=== PATIENT | female | born 1990 | race Caucasian/White ===

== ENCOUNTER 2018-11-02 07:15 | Inpatient (IN) | payer SELFPAY ==
[2017-11-10 18:27] VITALS: BMI 22.0
[2018-11-02] VITALS (24 sets, daily range): BP systolic 67–125; BP diastolic 23–66; PULSE 77–146; RESP 17–19; TEMP 36.1–37.2; O2SAT 98–100; BMI 26.1
[2018-11-02 07:13] LABS: ROM Internal Control Test YES-OK TO RESULT pt. (Internal QC)
[2018-11-02 07:14] LABS: ROM Patient Test POSITIVE (Negative)
[2018-11-02] MEDS: 0.9% Saline Lock 10 ML Syringe IV ×6 (08:05→23:45)
--- NOTE | 2018-11-02 08:14 | PCM.HP.OB ---
- Problem List (1) PROM (premature rupture of membranes) Status: Acute (2) History of spontaneous Status: Acute History Date of Admission: 11/02/18 Final BRETT: 11/04/18 Gestational age: 39 Weeks and 5 Days History of this : This is a 28 year-old, G [2], P [0010], at 39 weeks gestational age. Presented to L&D for SROM with clear fluid around 0200 this am. Upon arrival not visibly grossly ruptured. ROM plus sent, positive and admit to L&D. Allergies No Known Allergies Allergy (Verified 11/10/17 18:29) Home Medications: Home Medications Vits [Prenatabs FA ] 1 tab PO DAILY 11/02/18 Smoking Status: Never smoker Alcohol: None Number of Fetus(es): 1 Heart Tracin, moderate variabilty, accels, no decels, Category 1 Contractions every 5 minutes, mild to palpation. Cervix 3.5cm/75%-1. per nursing staff. Cephalic by Esteban's History Past Pregnancies: Past Pregnancies Delivery Date Name GA/Weeks Outcome Route Weight Gender Labor Length Anesthesia Delivery Location Provider FOB Labs: GBS negative HIV negative GC/CT negative RPR negative HBsAG negative A positive, antibody screen negative Rubella immune Review of Systems Constitutional: Denies: Chills, Fever, Weight Change HEENT: Denies: Head Aches, Sinus Congestion, Sinus Drainage Cardiovascular: Denies: Chest Pain, Palpitations Respiratory: Denies: Cough, Shortness of breath at rest, Sputum production Gastrointestinal: Reports: Abdominal Pain. Denies: Nausea, Vomiting Genitourinary: Denies: Dysuria Psychiatric: Denies: Anxiety, Depression, Homicidal Ideations, Suicidal Ideations Physical Exam General: Alert, Oriented x3, No apparent distress HEENT: Atraumatic, Normocephalic Cardiovascular: Regular rate, Regular Rhythm, No murmurs Lungs: Clear to auscultation, Normal air movement, No rhonchi, No wheeze Abdomen: Bowel Sounds Present, Gravid Extremities:: No edema Neurological: Deep Tendon Reflexes 2+/4 and Symmetrical. 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 A: Premature Rupture of Membranes Category 1 FHT P: 1) Admit to L&D 2) IV saline lock. Routine labs 3) Intermittent monitoring 4) Planning unmedicated . Reviewed pain management options, tub for labor, nitrous and IV pain medication. 5) notified of labor and admission. Collaborative physician.
[2018-11-02 08:36] LABS: Hematocrit 38.8 % (37-47); Hemoglobin 13.2 g/dl (12.0-15.0); Mean Corpuscular Hgb 31.4 pg (27.0-32.0); Mean Corpuscular Volume 92.4 fL (81-99); Mean Platelet Vol. 10.2 fl (6.2-12.0); Platelet Count 195 K/mm3 (150-450); RBC Distribution Width CV 12.7 % (11.6-14.6); RBC Distribution Width SD 42.7 fl (35.1-43.9); White Blood Count 11.4 K/mm3 (4.4-11.0)
[2018-11-02 08:41] LABS: Scan Indicated on CBC? Y/N NO
--- NOTE | 2018-11-02 13:03 | PCM.PN.OB ---
Patient Problems: Active and Suspected Problems PROM (premature rupture of membranes) (Acute) History of spontaneous (Acute) Subjective: Doing well per patient and nursing staff. Breathing well through contractions. at bedside. Laying on bed on left side with peanut ball. Objective: Coping well with contractions. FHR 120 via doppler, no increases or decreases, Category 1 TOCO: Contractions every 2-4 minutes, strong to palpation Cervix 5cm/90%/0 - Physical Exam Weight: 152 lb 1.903 oz Body Mass Index (BMI) 26.1 Laboratory Tests Past 24 Hrs 11/02/18 11/02/18 11/02/18 05:43 08:00 08:00 WBC 11.4 H RBC 4.20 Hgb 13.2 Hct 38.8 MCV 92.4 MCH 31.4 MCHC 34.0 RDW 12.7 RDW Differential 42.7 Plt Count 195 MPV 10.2 Vag Amniotic Fld Detect POSITIVE H Blood Type A POSITIVE Antibody Screen NEGATIVE Medical Necessity - Tobacco Use Smoking Status: Never smoker Assessment/Plan All Active Problems PROM (premature rupture of membranes) (Acute) History of spontaneous (Acute) A:Active Labor, progressing Category 1 FHT P: 1) Tub for pain management. Coping well. 2) Reviewed pain relief options. Ok to continue unmedicated at this time. 3) Side lying release, tolerated well. 4) Continue with expectant management. 5) notified of progress.
[2018-11-02] MEDS: Nalbuphine 10 MG/ML Ampul IV (14:44)
[2018-11-02] MEDS: Oxytocin 30 units/NS 500 ml 30 UNITS/500 ML IV.SOLN 334 UNITS IV (16:20)
[2018-11-02] MEDS: Lactated Ringers 1,000 ML 999 ML IV ×2 (16:20→19:50)
[2018-11-02] MEDS: Oxytocin 30 units/NS 500 ml 30 UNITS/500 ML IV.SOLN 167 UNITS IV (16:50)
[2018-11-02] MEDS: HYDROmorphone 1 MG/ML Syringe IV (17:13)
[2018-11-02] MEDS: Sodium Citrate/Citric Acid 30 ML UDC PO (17:28)
--- NOTE | 2018-11-02 17:38 | PCM.OB.VAG ---
- Problem List (1) PROM (premature rupture of membranes) Status: Acute (2) History of spontaneous Status: Acute (3) Vaginal delivery Status: Acute (4) First degree perineal laceration during delivery Status: Acute (5) Retained placenta Status: Acute Vaginal Delivery Maternal Presentation: Spontaneous Rupture of Membranes Amniotic Membrane Rupture Type: Spontaneous at home Rupture of Membrane time: 0200 Amniotic Fluid Description: Clear Final BRETT: 11/04/18 Gestational age: 39 Weeks and 5 Days Date of Procedure: 11/02/18 Pre-Operative Diagnosis: PROM Post-Operative Diagnosis: Surgery/ Procedure Performed: Spontaneous Vaginal Delivery Type of Anesthesia: None Description of Procedure: Progressed to complete with urge to push. heart tones down in 70's with late decelerations and recovered to baseline low 100's-115. Positional changes and O2 via face mask. of viable female over 1st degree perineal laceration. Cord around body loose.Spontaneous cry, mouth and nares suctioned for secretions. APGARS 9, 10. Weight pending. Baby placed skin to skin on maternal abdomen. Delayed cord clamping. Cord clamped and cut after pulsations ceased by FOB. Cord blood gases obtained. Pitocin started for active 3rd stage management via IV. Gentle traction/counter pressure for placenta delivery, not forthcoming. 10units with NS instilled into umbilical vein for retained placenta. Attempted manual removal but only feeling placental edge. Decision to call after 30 minutes of retained placenta and unable to remove manually. Patient stable and no signs of hemorrhage. Bladder emptied with straight hill catheter for 150ml of clear yellow urine. arrived for manual removal of placenta and unsuccessful. Will proceed to OR for removal under anesthesia. Please see note. Mom and baby stable. Baby skin to skin with FOB. Planning to breastfeed. Presentation: Vertex Placental Delivery Description: Retained - Manual removal attempted by and unsucessful. Cord Vessel Description: 3 Vessels Cord Gases drawn per routine: ABG, VBG Cord Entanglement: Around neck x 1, loose Estimated Blood Loss: 300 ml A gender: Female (1 minute): 9 (5 minute): 10 Episiotomy Description: None Laceration: Perineal Extension/lac, 1st degree - Unrepaired at time of delivery. Will complete repair in OR. Medications given after delivery: IV Pitocin Complications: None - Retained Placenta. To OR for removal by . See operative report.
[2018-11-02] MEDS: Cefazolin 2 GM in 0.9% Normal Saline 100 ML IV ×2 (17:40→23:50)
[2018-11-02] MEDS: miSOPROStol 200 MCG Tablet 1000 MCG RECTAL (19:28)
--- NOTE | 2018-11-02 19:51 | NURSING ---
Addendum entered by Monique Villatoro 11/02/18 20:04: per Lizette Lagunas MAC anesthesia used for D&C procedure Original Note: Anesthesia per Lizette Lagunas
--- NOTE | 2018-11-02 20:01 | OP.PCM_ITS ---
Problem List (1) Retained placenta Status: Acute Report of Operation Date of Procedure: 11/02/18 Pre-Operative Diagnosis: Retained placenta Post-Operative Diagnosis: As above Surgery/Procedure Performed:: Suction D&C under ultrasound guidance Description of Surgical Findings:: Uterus with retained fundal placenta noted on ultrasound. Cervix 4 cm dilated. 1st degree vaginal laceration Type of Anesthesia:: MAC Specimen's removed: Placental tissue Estimated Blood Loss (mL): 500 Fluids Replaced: 1700 Description of Procedure: MAC anesthesia was found to be adequate. The patient was prepped and draped in the dorsal lithotomy position using yellowfin stirrups in the usual sterile fashion. Ultrasound was performed noting retained fundal placenta. A first- degree vaginal laceration was noted. The cervix was 4 cm dilated. A speculum was placed to expose the cervix. A ring forcep was placed on the anterior lip of the cervix. A 16 mm suction curettage was advanced to the fundus under ultrasound guidance, and several passes were made noting a large amount of placenta to be removed. A banjo curettage was then used under ultrasound guidance noting additional amounts of placenta removed. A 14 mm suction curettage was then used again under ultrasound guidance until no further placenta was noted to be removed. A sharp curettage was performed noting no additional placenta and good cry of all 4 uterine pineda under ultrasound guidance. During the procedure the patient became hypotensive at the end of the procedure. Fundus was firm and bleeding was hemostatic. 3-0 Vicryl was used to repair the 1st degree vaginal laceration in usual fashion. 1000 mcg of Cytotec was placed rectally. A stat CBC and coags were ordered, and the patient was typed and crossed for 2 units of packed red blood cells. - Admit VTE Documentation VTE Present on Admission: No VTE Mechan Device Prophylaxis: None
--- NOTE | 2018-11-02 20:01 | PCM.PN.BLA ---
Progress Note At bedside to check on patient after procedure. Patient notably pale, and hypotensive. HR normal. Second IV being placed. Fundus remains firm and bleeding very scant at this time. Stat CBC and coags being sent. Discussed risks and benefits of a blood transfusion and patient agreeable to blood transfusion and provided consent. Bolus of 1L NS started. T&C for 2 units PRBC's sent, to start 1 unit of PRBC's immediately and possibly given additional units based on patients vitals and CBC.
[2018-11-02 20:21] LABS: Hematocrit 30.8 % (37-47); Hemoglobin 10.5 g/dl (12.0-15.0); Mean Corp Hgb Conc 34.1 g/gl (32-36); Mean Corpuscular Hgb 31.3 pg (27.0-32.0); Mean Corpuscular Volume 91.9 fL (81-99); Mean Platelet Vol. 9.7 fl (6.2-12.0); Platelet Count 182 K/mm3 (150-450); RBC Distribution Width CV 12.7 % (11.6-14.6); RBC Distribution Width SD 42.8 fl (35.1-43.9); Red Blood Count 3.35 M/mm3 (4.2-5.4); White Blood Count 25.2 K/mm3 (4.4-11.0)
[2018-11-02 20:26] LABS: International Normalized Ratio 1.1; Partial Thromboplast Time 26.4 Seconds (24.1-36.2)
--- NOTE | 2018-11-02 20:38 | PCM.PN.BLA ---
Progress Note At bedside to check on patient. Additional piece of placenta passed that appeared very fatty, and send to pathology for review. Fundus firm at U-1 and bleeding very scant. BP improving but pt still hypotensive. Still awaiting results of blood work. RN called regarding PRBC's, and still being prepared so transfusion not able to be started yet. TAUS performed at bedside noting a normal appearing uterus with thin endometrium, no additional placenta noted.
[2018-11-02 20:40] LABS: Scan Indicated on CBC? Y/N NO
--- NOTE | 2018-11-02 21:06 | NURSING ---
2 large softball size clots expressed with fundal check, small blood amount expressed with fundal check. fundus firm at umbilicus. Dr. Shrestha called to room for evaluation of bleeding.
--- NOTE | 2018-11-02 22:44 | NURSING ---
1 large softball sized clot passed upon fundal check. upon fundal massage large grapefruit membrane expressed. fundus firm at umbilicus and minimal bleeding. Dr. Shrestha called to pt room for inspection and evaluation of clot and membranes expressed with fundal check. @ 2017 Dr. Shrestha in pt room and states remaining placenta was expressed and wants US at bedside. @ 2019 US at bedside for further evaluation.
--- NOTE | 2018-11-02 23:09 | NURSING ---
Dr. Shrestha in to check on pt @ 1502.
[2018-11-02] MEDS: Lactated Ringers 1,000 ML 75 ML IV (23:45)
[2018-11-03] VITALS (7 sets, daily range): BP systolic 90–114; BP diastolic 49–58; PULSE 61–95; RESP 16–20; TEMP 36.5–37.2; O2SAT 98–100
--- NOTE | 2018-11-03 01:41 | NURSING ---
@ 0045 initially pt able to stand at bedside without feeling dizzy and light headed. pt became light headed and dizzy after standing for about 30 seconds, pt became pale and sat down at bedside. a cold wash cloth placed on back of neck. bedside commode brought to pt room so that pt can attempt to empty her bladder. pt able to sit on bedside commode @ 0055 without any symptoms but after a few minutes pt became faint. pt placed back into bed and blood pressure was taken. pt alert during situation.
[2018-11-03] MEDS: Cefazolin 2 GM in 0.9% Normal Saline 100 ML IV (05:35)
[2018-11-03 06:03] LABS: Hemoglobin 9.4 g/dl (12.0-15.0); Mean Corp Hgb Conc 34.8 g/gl (32-36); Mean Corpuscular Hgb 31.4 pg (27.0-32.0); Mean Corpuscular Volume 90.3 fL (81-99); Mean Platelet Vol. 9.6 fl (6.2-12.0); Platelet Count 156 K/mm3 (150-450); RBC Distribution Width CV 13.1 % (11.6-14.6); RBC Distribution Width SD 42.4 fl (35.1-43.9); Red Blood Count 2.99 M/mm3 (4.2-5.4)
[2018-11-03 06:05] LABS: Scan Indicated on CBC? Y/N NO
[2018-11-03 06:12] LABS: International Normalized Ratio 1.1; Prothrombin Time (Protime)PT. 14.3 SECONDS (11.7-14.9)
[2018-11-03 06:13] LABS: Partial Thromboplast Time 26.4 Seconds (24.1-36.2)
[2018-11-03 06:21] LABS: Fibrinogen 365 mg/dl (203-444)
[2018-11-03] MEDS: 0.9% Saline Lock 10 ML Syringe IV ×2 (06:30→21:33)
--- NOTE | 2018-11-03 08:14 | PN.OBGYN_ITS ---
Patient Problems: Active and Suspected Problems PROM (premature rupture of membranes) (Acute) History of spontaneous (Acute) Vaginal delivery (Acute) First degree perineal laceration during delivery (Acute) Retained placenta (Acute) Subjective: Is doing well. She feels better today. She had some lightheadedness and diz ziness overnight, which is improving. She was able to get up to the wheelchair and visit baby in special care nursery today. Tolerating a diet without nausea or vomiting. Spontaneously voiding. Pain is well controlled. Lochia is minimal. Denies chest pain, shortness of breath, leg pain. She plans to breast-feed. - Physical Exam General: Alert, No apparent distress HEENT: Atraumatic Lungs: - - No increased resp effort Abdomen: Soft, Non-Distended, - - ATTP, FF@U-1 Extremities: No edema, No Calf Tenderness Skin: No rashes Neurological: Neuro grossly intact Psych/Mental Status: Normal Affect, Appropriate Vital Signs Temp Pulse Resp BP Pulse Ox 97.8 F 72 16 109/58 L 100 11/03/18 04:35 11/03/18 04:35 11/03/18 04:35 11/03/18 04:35 11/03/18 00:55 Oxygen Delivery Method Room Air Weight: 152 lb 1.903 oz Body Mass Index (BMI) 26.1 Intake and Output for Last 24 Hours 11/01/18 11/02/18 11/03/18 23:59 23:59 23:59 Intake Total 3350 / 3350 Output Total 150 / 150 1100 / 1100 Balance 3200 / 3200 -1100 / -1100 Laboratory Tests Past 24 Hrs 11/02/18 11/02/18 11/02/18 08:00 08:00 08:00 WBC 11.4 H RBC 4.20 Hgb 13.2 Hct 38.8 MCV 92.4 MCH 31.4 MCHC 34.0 RDW 12.7 RDW Differential 42.7 Plt Count 195 MPV 10.2 Immature Gran % (Auto) Neut % (Auto) Lymph % (Auto) [place] % (Auto) Eos % (Auto) Baso % (Auto) Immature Gran # (Auto) Absolute Neuts (auto) Absolute Lymphs (auto) Absolute Monos (auto) Total Counted Neutrophils % (Manual) Band Neutrophils % Lymphocytes % (Manual) Monocytes % (Manual) Eosinophils % (Manual) Basophils % (Manual) Metamyelocytes % Myelocytes % Promyelocytes % Blast Cells % Plasma Cell % (Manual) Other Cells % Lymphocytes # Nucleated RBCs/100 WBC Differential Comment Hypersegmented Neuts Atypical Lymphocytes Reactive Lymphocytes Smudge Cells Eosinophilia # Basophilia # Toxic Granulation Dohle Bodies Dorcas Rods Platelet Estimate Plt Morphology Comment RBC Morphology Polychromasia Hypochromasia Poikilocytosis Basophilic Stippling Anisocytosis Microcytosis Macrocytosis Spherocytes Sickle Cells Target Cells Tear Drop Cells Ovalocytes Stomatocytes [place] Bodies [place] Cells Bite Cells Acanthocytes (Spur) Rouleaux Schistocytes PT INR APTT Fibrinogen Blood Type A POSITIVE Antibody Screen NEGATIVE Crossmatch See Detail 11/02/18 11/02/18 11/03/18 19:55 19:55 05:45 WBC 25.2 H 19.0 H RBC 3.35 L 2.99 L Hgb 10.5 L 9.4 L Hct 30.8 L 27.0 L MCV 91.9 90.3 MCH 31.3 31.4 MCHC 34.1 34.8 RDW 12.7 13.1 RDW Differential 42.8 42.4 Plt Count 182 156 MPV 9.7 9.6 Immature Gran % (Auto) Cancelled Neut % (Auto) Cancelled Lymph % (Auto) Cancelled [place] % (Auto) Cancelled Eos % (Auto) Cancelled Baso % (Auto) Cancelled Immature Gran # (Auto) Cancelled Absolute Neuts (auto) Cancelled Absolute Lymphs (auto) Cancelled Absolute Monos (auto) Cancelled Total Counted Cancelled Neutrophils % (Manual) Cancelled Band Neutrophils % Cancelled Lymphocytes % (Manual) Cancelled Monocytes % (Manual) Cancelled Eosinophils % (Manual) Cancelled Basophils % (Manual) Cancelled Metamyelocytes % Cancelled Myelocytes % Cancelled Promyelocytes % Cancelled Blast Cells % Cancelled Plasma Cell % (Manual) Cancelled Other Cells % Cancelled Lymphocytes # Cancelled Nucleated RBCs/100 WBC Cancelled Differential Comment Cancelled Hypersegmented Neuts Cancelled Atypical Lymphocytes Cancelled Reactive Lymphocytes Cancelled Smudge Cells Cancelled Eosinophilia # Cancelled Basophilia # Cancelled Toxic Granulation Cancelled Dohle Bodies Cancelled Dorcas Rods Cancelled Platelet Estimate Cancelled Plt Morphology Comment Cancelled RBC Morphology Cancelled Polychromasia Cancelled Hypochromasia Cancelled Poikilocytosis Cancelled Basophilic Stippling Cancelled Anisocytosis Cancelled Microcytosis Cancelled Macrocytosis Cancelled Spherocytes Cancelled Sickle Cells Cancelled Target Cells Cancelled Tear Drop Cells Cancelled Ovalocytes Cancelled Stomatocytes Cancelled [place] Bodies Cancelled [place] Cells Cancelled Bite Cells Cancelled Acanthocytes (Spur) Cancelled Rouleaux Cancelled Schistocytes Cancelled PT 14.0 INR 1.1 APTT 26.4 Fibrinogen Blood Type Antibody Screen Crossmatch 11/03/18 05:45 WBC RBC Hgb Hct MCV MCH MCHC RDW RDW Differential Plt Count MPV Immature Gran % (Auto) Neut % (Auto) Lymph % (Auto) [place] % (Auto) Eos % (Auto) Baso % (Auto) Immature Gran # (Auto) Absolute Neuts (auto) Absolute Lymphs (auto) Absolute Monos (auto) Total Counted Neutrophils % (Manual) Band Neutrophils % Lymphocytes % (Manual) Monocytes % (Manual) Eosinophils % (Manual) Basophils % (Manual) Metamyelocytes % Myelocytes % Promyelocytes % Blast Cells % Plasma Cell % (Manual) Other Cells % Lymphocytes # Nucleated RBCs/100 WBC Differential Comment Hypersegmented Neuts Atypical Lymphocytes Reactive Lymphocytes Smudge Cells Eosinophilia # Basophilia # Toxic Granulation Dohle Bodies Dorcas Rods Platelet Estimate Plt Morphology Comment RBC Morphology Polychromasia Hypochromasia Poikilocytosis Basophilic Stippling Anisocytosis Microcytosis Macrocytosis Spherocytes Sickle Cells Target Cells Tear Drop Cells Ovalocytes Stomatocytes [place] Bodies [place] Cells Bite Cells Acanthocytes (Spur) Rouleaux Schistocytes PT 14.3 INR 1.1 APTT 26.4 Fibrinogen 365 Blood Type Antibody Screen Crossmatch Medical Necessity - Tobacco Use Smoking Status: Never smoker Assessment/Plan All Active Problems PROM (premature rupture of membranes) (Acute) History of spontaneous (Acute) Vaginal delivery (Acute) First degree perineal laceration during delivery (Acute) Retained placenta (Acute) PP day #1 s/p POD#1 s/p suction D&C for retained placenta followed by hypotension, tachycardia - give 1 unit PRBC's - VSS, HD stable - Minimal bleeding and fundus remains firm - Hgb 9 this morning, will repeat tomorrow - Pt feeling improved - Will start daily iron at home, rx sent - Plans to breastfeed - Baby in special care nursery - Dispo: Routine care. Likely d/c tomorrow
--- NOTE | 2018-11-03 08:19 | DCINST_ITS ---
Discharge Diet: No Restrictions Discharge Activity: Return to Normal Activity, May Shower May resume sexual activity in: 6 weeks Weight Bearing Status: Weight bearing as tolerated Lifting Restrictions: None Call your doctor if you observe: Fever of 101 or Higher, Inability to urinate, Inability to have a bowel movement, Using more than one pad per hour, Shortness of breath, Chest pain, Increased palpitations (irregular heartbeat), Calf discomfort, Uncontrolled pain Instructions: After a Vaginal , Discharge Instructions for Dilation and Curettage (D and C) Additional Instructions: If you experience any of the following, contact your healthcare provider. * Bleeding that soaks a pad every hour for 2 hours * Fever 100.4 or higher * Unrelieved incision or abdominal pain * Swelling, redness, discharge or bleeding from your incision or episiotomy site * Your incision begins to separate * Problems urinating (including inability to urinate or burning while urinating). * Visual changes * Severe headache * Flu-like symptoms * Pain or redness in one of both of your breasts * Pain, warmth, tenderness or swelling in your legs, especially the calf area * Frequent nausea and vomiting * Symptoms of depression or anxiety If you experience any of the following, call 911 or go to the nearest Emergency Room. * Chest pain * Problems breathing * Seizure activity * Partial or complete paralysis of a body part, slurred speech, weakness or drooping of the face, or a sudden inability to walk or hold your balance Allergies/Adverse Reactions: Allergies No Known Allergies Allergy (Verified 11/10/17 18:29) Medications to take at Discharge Vits [Prenatabs FA ] 1 tab PO DAILY 11/02/18 Ferrous Sulfate 325 mg PO DAILY #60 tablet 11/03/18 The following prescriptions were given: Ferrous Sulfate 325 mg PO DAILY #60 tablet When: In 1-2 weeks, and then in 4-6 weeks as well. Primary Care Physician: Maxi Ramos DO [Primary Care Provider] - Test Results: Test results from this visit will be discussed in further detail at your follow- up appointment, if applicable.
[2018-11-03] MEDS: Senna/Docusate Sodium 1 Tablet PO (08:44)
[2018-11-03] MEDS: Ibuprofen 600 MG Tablet PO ×2 (08:44→17:06)
[2018-11-03] MEDS: Dibucaine 30 GM Tube 1 APPLIC TOPICAL (08:51)
--- NOTE | 2018-11-03 09:29 | NURSING ---
slight bruise small area raised along perineum soft to touch
[2018-11-04 01:51] VITALS: BP 86/55; PULSE 70; RESP 14; TEMP 36.6; O2SAT 98
--- NOTE | 2018-11-04 01:51 | NURSING ---
Pt. sleeping in bed when RN entered room to assess vital signs. Blood pressure found to be 86/55. Pt. denies any headache and states she is just sleepy. Fundus firm and midline at u-2, all other vital signs stable. Bleeding scant and appropriate.
[2018-11-04 05:48] LABS: Hematocrit 24.5 % (37-47); Hemoglobin 8.2 g/dl (12.0-15.0); Mean Corp Hgb Conc 33.5 g/gl (32-36); Mean Corpuscular Hgb 31.8 pg (27.0-32.0); Mean Platelet Vol. 9.1 fl (6.2-12.0); Platelet Count 159 K/mm3 (150-450); RBC Distribution Width SD 42.9 fl (35.1-43.9); Red Blood Count 2.58 M/mm3 (4.2-5.4); White Blood Count 12.2 K/mm3 (4.4-11.0)
[2018-11-04 05:49] LABS: Scan Indicated on CBC? Y/N NO
--- NOTE | 2018-11-04 08:04 | PCM.PN.OB ---
Patient Problems: Active and Suspected Problems PROM (premature rupture of membranes) (Acute) History of spontaneous (Acute) Vaginal delivery (Acute) First degree perineal laceration during delivery (Acute) Retained placenta (Acute) Subjective: No complaints - Physical Exam General: Alert, Oriented x3 Abdomen: Soft, Non Tender, Non-Distended - ff mid & below umb Extremities: No Calf Tenderness Vital Signs Temp Pulse Resp BP Pulse Ox 97.9 F 70 14 86/55 L 98 11/04/18 01:51 11/04/18 01:51 11/04/18 01:51 11/04/18 01:51 11/04/18 01:51 Oxygen Delivery Method Room Air Weight: 152 lb 1.903 oz Body Mass Index (BMI) 26.1 Intake and Output for Last 24 Hours 11/02/18 11/03/18 11/04/18 23:59 23:59 23:59 Intake Total 3350 / 3350 Output Total 150 / 150 1600 / 1600 Balance 3200 / 3200 -1600 / -1600 Laboratory Tests Past 24 Hrs 11/04/18 05:36 WBC 12.2 H RBC 2.58 L Hgb 8.2 L Hct 24.5 L MCV 95.0 MCH 31.8 MCHC 33.5 RDW 13.0 RDW Differential 42.9 Plt Count 159 MPV 9.1 Medical Necessity - Tobacco Use Smoking Status: Never smoker Assessment/Plan All Active Problems PROM (premature rupture of membranes) (Acute) History of spontaneous (Acute) Vaginal delivery (Acute) First degree perineal laceration during delivery (Acute) Retained placenta (Acute) PPD#2 Routine care D/c home or to hotel Anemia - cbc reviewed, continue iron
[2018-11-04] MEDS: Ibuprofen 600 MG Tablet PO (09:26)
[2018-11-04] MEDS: Senna/Docusate Sodium 1 Tablet PO (09:27)
[2018-11-04 10:00] VITALS: BP 90/56; PULSE 85; RESP 16; TEMP 36.5; O2SAT 98
--- NOTE | 2018-11-04 10:32 | NURSING ---
Hematoma present to right labia. Bruised. Hematoma is oblong in shape and roughly the size of a julian guillory. Visualized by myself and Kiara Coto, who witnessed hematoma previously. Patient given ice and instructed to rest and keep pressure off site when possible.
--- NOTE | 2018-11-05 11:24 | CASEMGMT ---
Social Work Note Referral for Self-Pay status. Face to face with MOB and Edouard CASE, in [facility]. Introduced self and role at [facility]. MOB reports that they have [employer] where they pay so much in monthly, submit their medical bills, and all or a portion gets covered by others that are putting in. They feel financially stable and deny any concern or need for resources at this time. Confirm that they have access to transportation for appointments, and the infant's family doctor will be Dr. Ramos. Claim to have all necessary supplies and adequate supports among family. No further needs or concerns identified at this time, and both made aware that SW is available in needs or questions arise. PLAN: Discharge home with spouse and with support of family. Ashwini Vaughn, PATRIZIA, RINA
== END 2018-11-04 12:10 | disposition home or self-care (01) | DRG 798 ==
LOC: WPOUT 07:21 → WP 16:23 → ACINP 17:26 → WP 18:09
PROVIDERS: Advanced Practice Midwife; Admitting Provider Obstetrics & Gynecology; Family Provider Student in an Organized Health Care Education/Training Program; PCP Student in an Organized Health Care Education/Training Program; Referring Provider Obstetrics & Gynecology; Visit Provider Obstetrics & Gynecology
DX: O42.02 Full-term premature rupture of membranes, onset of labor within 24 hours of rupture (principal); Z37.0 Single live birth; O70.0 First degree perineal laceration during delivery; O69.81X0 Labor and delivery complicated by cord around neck, without compression, not applicable or unspecified; O69.82X0 Labor and delivery complicated by other cord entanglement, without compression, not applicable or unspecified; O26.23 Pregnancy care for patient with recurrent pregnancy loss, third trimester; O73.1 Retained portions of placenta and membranes, without hemorrhage; Z3A.39 39 weeks gestation of pregnancy
CPT/HCPCS: 59025; 59050; 76815; 84112; 85027; 85384; 85610; 85730; 86850; 86900; 86920; 99218; J7120; P9016; A4216; G0378; J3490

== ENCOUNTER 2020-07-30 04:41 | Inpatient (IN) | payer SELFPAY ==
[2018-11-02 06:55] VITALS: BMI 26.1
[2020-07-30] VITALS (21 sets, daily range): BP systolic 95–120; BP diastolic 51–68; PULSE 46–78; RESP 18; TEMP 36–37.5; O2SAT 98–100; BMI 24.7
[2020-07-30] MEDS: Oxytocin 10 UNITS/ML Vial IM (05:09)
--- NOTE | 2020-07-30 05:46 | HP.PCM_ITS ---
History Date of Admission: 07/30/20 Final BRETT: 08/18/20 Gestational age: 37 Weeks and 2 Days History of this : This is a 29 year-old, G [], P [], at weeks gestational age. Allergies No Known Allergies Allergy (Verified 11/10/17 18:29) Home Medications: Home Medications Vits [Prenatabs FA ] 1 tab PO DAILY 11/02/18 Ferrous Sulfate 325 mg PO DAILY #60 tablet 11/03/18 Smoking Status: Never smoker Alcohol: None Number of Fetus(es): 1 History Past Pregnancies: Past Pregnancies Delivery Date Name GA/ Weeks Outcome Route Wt Sex Labor Length Anesthesia Delivery Location Provider FOB Labs: See [facility] prenatals Physical Exam Vitals: Vital Signs Pulse BP Pulse Ox 53 L 101/59 L 100 07/30/20 05:43 07/30/20 05:38 07/30/20 05:43 General: Alert, Oriented x3 Abdomen: Soft, Non Tender, Non-Distended, Gravid Neurological: Cranial nerves II-XII grossly intact [employer]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 Patient was admitted to L&D. She had a precipitous - see delivery note GBS negative
--- NOTE | 2020-07-30 05:50 | PCM.OPRPT ---
Vaginal Delivery Maternal Presentation: Active Labor Amniotic Membrane Rupture Type: Spontaneous at home Amniotic Fluid Description: Clear Final BRETT: 08/18/20 Gestational age: 37 Weeks and 2 Days Date of Procedure: 07/30/20 Pre-Operative Diagnosis: Labor Post-Operative Diagnosis: Labor Surgery/ Procedure Performed: Spontaneous Vaginal Delivery Type of Anesthesia: None Description of Procedure: Patient in stirrups when C/C/+2. She pushed to deliver the head. Shoulders & body easily followed. Infant placed on maternal abdomen where 3VC clamped & cut in delayed fashion. Placenta delivered with gentle traction. Good uterine tone obtained. Presentation: CRISTINO Placental Delivery Description: Expressed Placenta Disposition: [facility] Cord Vessel Description: 3 Vessels Nuchal Cord Compression: Without compression Cord Entanglement: Around neck x 1, loose Estimated Blood Loss: 200ml (1 minute): 9 (5 minute): 9 Episiotomy Description: None Laceration: None Medications given after delivery: - - IM pitocin Complications: None
[2020-07-30 06:07] LABS: Absolute Lymphocyte Count 0.75 X10^3/uL (0.83-4.51); Basophil# 0.02 X10^3/uL; Basophil% 0.2 % (0-1); Hematocrit 36.9 % (37-47); Hemoglobin 12.3 g/dL (12.0-15.0); Lymphocyte # 0.75 X10^3/ul (4.0); Lymphocyte % 6.6 % (19-41); Mean Corp Hgb Conc 33.3 g/dL (32-36); Mean Corpuscular Hgb 31.8 pg (27.0-32.0); Mean Corpuscular Volume 95.3 fL (81-99); Mean Platelet Vol. 10.6 fl (6.2-12.0); Monocyte# 0.44 X10^3/uL; Monocyte% 3.9 % (0-10); NRBC Flagged by Analyzer 0 % (0-5); Neutrophil # 10.02 X10^3/uL (2.7-7.7); Neutrophil % 88.5 % (47-70); Platelet Count 182 K/mm3 (150-450); RBC Distribution Width CV 11.9 % (11.6-14.6); RBC Distribution Width SD 41.3 fl (35.1-43.9); Red Blood Count 3.87 M/mm3 (4.2-5.4); White Blood Count 11.3 K/mm3 (4.4-11.0)
[2020-07-30] MEDS: Ibuprofen 600 MG Tablet PO (11:11)
[2020-07-30] MEDS: Senna/Docusate Sodium 1 Tablet PO (11:12)
[2020-07-31 05:01] VITALS: BP 98/51; PULSE 51; RESP 18; TEMP 36.7
[2020-07-31 08:00] VITALS: BP 103/58; PULSE 59; RESP 16; TEMP 36.4
--- NOTE | 2020-07-31 08:26 | PCM.PN.OB ---
Subjective: pt seen at bedside, doing well. pt reports good pain control. lochia mild. Breast feeding well. - Physical Exam Vitals/I&O's: Vital Signs Temp Pulse Resp BP Pulse Ox 98.1 F 51 L 18 98/51 L 100 07/31/20 05:01 07/31/20 05:01 07/31/20 05:01 07/31/20 05:01 07/30/20 05:43 Oxygen Delivery Method Room Air Weight: 65.227 kg Body Mass Index (BMI) 24.7 Intake and Output for Last 24 Hours 07/29/20 07/30/20 07/31/20 23:59 23:59 23:59 Output Total 600 / 600 Balance -600 / -600 General: Alert, Oriented x3 Abdomen: Soft, Non Tender, Non-Distended, - - fundus firm Extremities: No Calf Tenderness Current Medications Acetaminophen (Tylenol) 1,000 mg PO Q8H PRN PRN PRN Reason: Pain Score 1-3/10 Bisacodyl (Dulcolax) 10 mg RECTAL UD PRN PRN Reason: If no BM Dibucaine (Dibucaine) 1 applic TOPICAL TID PRN PRN; Protocol PRN Reason: Discomfort Hydrocortisone (Hytone) 1 applic TOPICAL TID PRN PRN; Protocol PRN Reason: Discomfort Ibuprofen (Motrin) 600 mg PO Q6H PRN PRN PRN Reason: Pain Score 1-3/10 Last Admin: 07/30/20 11:11 Dose: 600 mg Documented by: Methylergonovine Maleate (Methergine) 0.2 mg IM X1 PRN PRN Reason: Excess bleeding/uterine atony Ondansetron HCl (Zofran) 4 mg IV Q4H PRN PRN PRN Reason: Nausea Oxycodone HCl (Oxyir) 5 - 10 mg PO Q4H PRN PRN PRN Reason: Pain Score 4-10/10 Senna/Docusate Sodium (Senokot-S, Patty-Colace) 1 - 2 tablet PO DAILY PRN PRN PRN Reason: Constipation Last Admin: 07/30/20 11:12 Dose: 2 tablet Documented by: Simethicone (Mylicon) 80 mg PO PCHS PRN PRN Reason: Indigestion/Stomach pain Sodium Chloride () 5 - 15 ml IV UD PRN PRN Reason: SALINE FLUSH Medical Necessity - Tobacco Use Smoking Status: Never smoker Assessment/Plan All Active Problems PROM (premature rupture of membranes) (Acute) History of spontaneous (Acute) Vaginal delivery (Acute) First degree perineal laceration during delivery (Acute) Retained placenta (Acute) PPD#1, doing well requesting dc home today consultation prior to dc home ambulation pain mgmt
--- NOTE | 2020-07-31 08:28 | DCINST_ITS ---
Discharge Diet: No Restrictions Discharge Activity: Return to Normal Activity, May not drive while taking narcotic pain medications., May Shower May resume sexual activity in: 4-6 weeks Additional Activity Instructions:: Nothing in the vagina for 4-6 weeks. You may return to work/school in 6 weeks. Call your doctor if your incision/area has: Continuous Slow Oozing, Sudden Increased Bleeding, Increased Pain/ Swelling, Increased Redness, Foul Smelling Discharge Additional Instructions: If you experience any of the following, contact your healthcare provider. * Bleeding that soaks a pad every hour for 2 hours * Fever 100.4 or higher * Unrelieved incision or abdominal pain * Swelling, redness, discharge or bleeding from your incision or episiotomy site * Your incision begins to separate * Problems urinating (including inability to urinate or burning while urinating). * Visual changes * Severe headache * Flu-like symptoms * Pain or redness in one of both of your breasts * Pain, warmth, tenderness or swelling in your legs, especially the calf area * Frequent nausea and vomiting * Symptoms of depression or anxiety If you experience any of the following, call 911 or go to the nearest Emergency Room. * Chest pain * Problems breathing * Seizure activity * Partial or complete paralysis of a body part, slurred speech, weakness or drooping of the face, or a sudden inability to walk or hold your balance Allergies/Adverse Reactions: Allergies No Known Allergies Allergy (Verified 07/30/20 06:12) Medications to take at Discharge Vits [Prenatabs FA ] 1 tab PO DAILY 11/02/18 Ibuprofen [Motrin] 600 mg PO Q6H PRN PRN #30 tab 07/31/20 The following prescriptions were given: Ibuprofen [Motrin] 600 mg PO Q6H PRN PRN #30 tab PRN Reason: Pain Score 1-3/10 Transmission Status: Pending to [facility] When: Call to make an appointment with your doctor in 1-2 week then at 6 weeks. If you had elevated Blood Pressure or 4th degree laceration you will need to be seen in 1 week Primary Care Physician: Maxi Ramos DO [Primary Care Provider] - Test Results: Test results from this visit will be discussed in further detail at your follow- up appointment, if applicable.
[2020-07-31 13:22] VITALS: BP 109/62; PULSE 58; RESP 16; TEMP 37.1
== END 2020-07-31 14:45 | disposition home or self-care (01) | DRG 807 ==
LOC: WPOUT 04:42 → WP 04:42
PROVIDERS: Admitting Provider Obstetrics & Gynecology; PCP Student in an Organized Health Care Education/Training Program; Referring Provider Obstetrics & Gynecology; Visit Provider Obstetrics & Gynecology
DX: O69.81X0 Labor and delivery complicated by cord around neck, without compression, not applicable or unspecified (principal); Z37.0 Single live birth; Z3A.37 37 weeks gestation of pregnancy
CPT/HCPCS: 59025; 59050; 85025; 86850; 86900; 86901; 99218; G0378